=== PATIENT | female | born 1970 | race Hispanic/Latino ===

== ENCOUNTER 2018-01-21 09:17 | Outpatient (CLI) | payer BC ==
[2018-01-21 10:25] LABS: Estimated GFR-MDRD - POC Greater than 90
[2018-01-21] MEDS ORDERED: Gadobenate Dimeglumine 529 MG/1 ML (20ML VIAL) ONE (10:39)
--- NOTE | 2018-01-21 12:10 | MRI ---
MRI LUMBAR SPINE WITH AND WITHOUT GADOLINIUM CONTRAST: History: Low back pain. Left leg radiculopathy. FINDINGS: No comparison. Conus medullaris has a normal appearance. Vertebral body height and alignment are maintained. Desicca tion of lowest two intravertebral discs. T12-L1, L1-2, L2-3: Central canal and neural foramina are patent. L3-4: Small focal posterior central disc herniation slightly compresses the ventral aspect of the the charlie sac just to the right of midline. No significant nerve root compression. Neural foramina are herndon nt. L4-5: Left posterior paracentral disc herniation compresses the left ventral aspect of the thecal sac and slightly displaces the cauda equina roots. Slight inferior extension compresses the left L5 nerv e root origin just above the level of the lateral recess. Neural foramina remain patent. L5-S1: Mild osteophytosis and disc bulge. Thecal sac remains patent. Degenerative changes result in m oderate right and moderate to severe left foraminal stenoses. IMPRESSION: 1. Left posterior paracentral disc herniation at the L4-5 level, effacing the thecal sac and compress ing the left L5 nerve root origin. Left L5 nerve root also affected by stenosis at the left neurofora men at the lumbosacral junction. 2. Small right posterior paracentral disc herniation at the L3-4 level. 3. Other relatively mild degenerative change of the lower lumbar spine as detailed above. POS: JERRICA
== END 2018-01-21 09:18 | disposition home or self-care (01) ==
LOC: BICMRI 09:17
PROVIDERS: ATTEND Nurse Practitioner Family
DX: M54.5 Low back pain (principal); G57.00 Lesion of sciatic nerve, unspecified lower limb; G62.9 Polyneuropathy, unspecified; M51.26 Other intervertebral disc displacement, lumbar region; M47.897 Other spondylosis, lumbosacral region
CPT/HCPCS: 36415; 72158; 80048; 82565; A9579

== ENCOUNTER 2018-03-12 09:59 | Outpatient (CLI) | payer BC ==
[2018-03-12 11:23] LABS: Hemoglobin 13.8 g/dL (12.0-16.0); Mean Corpuscular HGB CONC 33.6 g/dL (32.0-36.0); Mean Corpuscular Volume 92.3 fL (78.0-98.0); Mean Platelet Volume 8.8 fL (7.4-10.4); Platelet Count 307 thou/uL (130-400); RBC Distribution Width 11.6 % (11.5-14.5); Red Blood Cell (RBC) Count 4.44 mill/uL (4.20-5.40); White Blood Cell (WBC) Count 15.3 thou/uL (4.8-10.8)
[2018-03-12 11:37] LABS: Anion Gap 12 mmol/L (10-20); BUN (Urea Nitrogen) 11 mg/dL (7.0-18.7); Calc. Creatinine Clearance 0 mL/min (70-130); Carbon Dioxide 24 mmol/L (22-29); Chloride 106 mmol/L (98-107); Estimated GFR-MDRD 88; Glucose 196 mg/dL (70-105); Potassium 3.7 mmol/L (3.5-5.1); Sodium 138 mmol/L (136-145)
--- NOTE | 2018-03-12 18:00 | EKG ---
Test Reason : Blood Pressure : / mmHG Vent. Rate : 068 BPM Atrial Rate : 068 BPM P-R Int : 162 ms QRS Dur : 086 ms QT Int : 388 ms P-R-T Axes : 085 080 078 degrees QTc Int : 412 ms Normal sinus rhythm ST elevation consider inferior injury or acute infarct vs. J point elevation and early repolarizatio n. Abnormal ECG No previous ECGs available Confirmed by NADIA LANGFORD ([id number]) on 03/12/2018 5:59:50 PM Referred By: SHENG Confirmed By:NADIA LANGFORD
--- NOTE | 2018-03-12 18:03 | EKG ---
Test Reason : REPEAT Blood Pressure : / mmHG Vent. Rate : 065 BPM Atrial Rate : 065 BPM P-R Int : 164 ms QRS Dur : 086 ms QT Int : 388 ms P-R-T Axes : 059 074 071 degrees QTc Int : 403 ms Normal sinus rhythm ST elevation consider inferior injury or acute infarct or early repolarization with J point elevation. Abnormal ECG When compared with ECG of 12-MAR-2018 10:53, (Unconfirmed) No significant change was found Confirmed by NADIA LANGFORD ([id number]) on 03/12/2018 6:03:11 PM Referred By: BENI Confirmed By:NADIA LANGFORD
== END 2018-03-12 10:00 | disposition home or self-care (01) ==
LOC: LABBT 09:59
PROVIDERS: ATTEND Neurological Surgery
DX: Z01.818 Encounter for other preprocedural examination (principal)
CPT/HCPCS: 80048; 85027; 93005; 93010

== ENCOUNTER 2018-03-21 07:00 | Day surgery (SDC) | payer BC ==
[2018-03-12 10:23] VITALS: BMI 31.2
[2018-03-21] MEDS ORDERED: CEFAZOLIN 2 GM/50 ML BAG ONE (08:08)
[2018-03-21] MEDS ORDERED: HYDROmorphone 2 MG/ML VIAL ONE (09:16)
[2018-03-21] MEDS ORDERED: Fentanyl 100 MCG/2 ML VIAL ONE ×3 (09:16→11:28)
--- NOTE | 2018-03-21 10:57 | OP ---
DATE OF PROCEDURE: 03/21/2018 INVESTMENT ACCOUNTING CLERK: Thomas. PROCEDURE PERFORMED: Left L4-L5 microdiskectomy. DESCRIPTION OF PROCEDURE: The patient was brought to the operating room and intubated. She was rolled in the prone position on gel-filled chest rolls. An incision was made exposing L4-L5 on the left, and the level was confirmed by x-ray. We performed a left L4-L5 hemilaminectomy ligament and beneath the left L5 nerve root, identified a large central disk herniation, it was removed in multiple fragments. A complete decompression of left L5 was achieved. The wound was then extensively irrigated and maximum hemostasis was secured. Vancomycin powder was applied and the wound was closed in anatomic layers. Job ID: [id number]
[2018-03-21] MEDS ORDERED: Ondansetron ODT 4 MG TAB ONE (14:58)
[2018-03-21] MEDS ORDERED: Ketorolac Tromethamine 30 MG/ML VIAL ONE (20:34)
[2018-03-21] MEDS ORDERED: Glycopyrrolate 0.2 MG/ML 5 ML SYRINGE ONE (20:34)
[2018-03-21] MEDS ORDERED: Dexamethasone 20 MG/5 ML VIAL ONE (20:34)
[2018-03-21] MEDS ORDERED: Lidocaine 1% PF 5 ML VIAL ONE (20:34)
[2018-03-21] MEDS ORDERED: PROPOFOL 200 MG/20 ML VIAL ONE (20:34)
[2018-03-21] MEDS ORDERED: Ondansetron PF 4 MG/2 ML Vial ONE (20:34)
[2018-03-21] MEDS ORDERED: PROVENTIL INHALER 6.7 G (200 INHALATIONS) ONE (20:34)
== END 2018-03-21 15:30 | disposition home or self-care (01) ==
LOC: SDC 07:00
PROVIDERS: ATTEND Neurological Surgery
PROC: 0SB20ZZ Excision of Lumbar Vertebral Disc, Open Approach (ICD-10-PCS; principal; 2018-03-21)
DX: M51.16 Intervertebral disc disorders with radiculopathy, lumbar region (principal); E11.9 Type 2 diabetes mellitus without complications; E78.00 Pure hypercholesterolemia, unspecified; Z79.899 Other long term (current) drug therapy; Z88.5 Allergy status to narcotic agent
CPT/HCPCS: 76001; 96374; J1100; J1170; J1885; J2001; J2405; J2704; J3010; J3370; Q0162

== ENCOUNTER 2020-02-29 14:58 | Outpatient (CLI) | payer BC ==
--- NOTE | 2020-02-29 16:12 | MRI ---
MR OF THE RIGHT KNEE WITHOUT CONTRAST INDICATION: Right knee osteoarthrosis and right knee pain TECHNIQUE: Axial and coronal PD fat sat, sagittal T2 fat sat, sagittal PD turbo spin echo and T1 anup nal images were obtained of the right knee. COMPARISON: None. FINDINGS: Joint effusion: There is very small joint effusion. Semimembranosus-medial gastrocnemius popliteal cyst: None. Ligaments: The ACL, PCL, MCL and LCLC are intact. Extensor mechanism: Intact. Menisci: There is a discoid lateral meniscus with multidirectional maceration seen involving the ante rior and central aspect of the discoid meniscus. There is prominent intrasubstance degenerative signal involving the posterior aspect of the lateral meniscus. There is a horizontally oriented tear involving the body of the medial meniscus. Articular cartilage: There is diffuse thinning involving the femoral tibial and patellofemoral compar tments. There are small marginal osteophytes affecting all major compartments. Osseous structures: No acute fracture is evident. Popliteus and IT band: The IT band and popliteus appear within normal limits. There is susceptibility artifact within the lateral patellar retinaculum which may reflect sequela of prior lateral release. IMPRESSION: 1. Postoperative right knee. 2. 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 3. Medial meniscal tear. 4. Mild osteoarthrosis of the right knee.
== END 2020-02-29 14:59 | disposition home or self-care (01) ==
LOC: BICMRI 14:58
PROVIDERS: ATTEND Orthopaedic Surgery
DX: S83.281A Other tear of lateral meniscus, current injury, right knee, initial encounter (principal); M17.0 Bilateral primary osteoarthritis of knee; S83.241A Other tear of medial meniscus, current injury, right knee, initial encounter; Z98.890 Other specified postprocedural states

== ENCOUNTER 2020-03-04 07:06 | Outpatient (CLI) | payer BC ==
[2020-03-04 19:31] LABS: #Basophils 0.1 10x3/uL (0.0-0.2); #Eosinphils 0.2 10x3/uL (0.0-0.5); #Monocytes 0.6 10x3/uL (0.0-1.1); #Neutrophils 5.6 10x3/uL (1.5-8.4); %Basophils 0.8 % (0.0-2.0); %Eosinophils 1.5 % (0.0-6.0); %Lymphocytes 38.2 % (18.0-47.0); %Monocytes 5.6 % (0.0-10.0); %Neutrophils 53.6 % (40.0-75.0); Hemoglobin 13.7 g/dL (12.0-16.0); Mean Corpuscular HGB CONC 32.6 G/DL (32.0-36.0); Mean Corpuscular Hemoglobin 30.4 PG (27.0-33.0); Mean Corpuscular Volume 93.3 fl (80.0-100.0); Mean Platelet Volume 12.2 fl (7.4-10.4); Platelet Count 261 10x3/uL (130-400); RBC Distribution Width 13.1 % (11.5-14.5); White Blood Cell (WBC) Count 10.4 10x3/uL (4.5-11.0)
[2020-03-04 19:42] LABS: Anion Gap 16 mmol/L (10-20); BUN (Urea Nitrogen) 10 mg/dL (7.0-18.7); Calc. Creatinine Clearance 0 mL/min (70-130); Calcium 10.1 mg/dL (7.8-10.44); Carbon Dioxide 24 mmol/L (22-29); Chloride 103 mmol/L (98-107); Glucose 104 mg/dL (70-105); Sodium 139 mmol/L (136-145)
[2020-03-05 03:33] LABS: SARS-CoV-2 MS2 Positive; SARS-CoV-2 N Gene Negative; SARS-CoV-2 S Gene Negative; SARS-CoV-2 by NAA Not Detected (NotDetected); SARS-CoV-2 orf1ab Negative
== END 2020-03-04 07:07 | disposition home or self-care (01) ==
LOC: LABBT 07:06
PROVIDERS: ATTEND Orthopaedic Surgery
DX: Z01.818 Encounter for other preprocedural examination (principal); S83.206A Unspecified tear of unspecified meniscus, current injury, right knee, initial encounter; Z20.828 Contact with and (suspected) exposure to other viral communicable diseases
CPT/HCPCS: 80048; 85025; 87635; 93005; 93010; U0003

== ENCOUNTER 2020-03-09 07:55 | Day surgery (SDC) | payer BC ==
[2020-03-08 11:42] VITALS: BMI 33.2
[2020-03-09] MEDS ORDERED: PROPOFOL 20 ML ONE (08:34)
[2020-03-09] MEDS ORDERED: Lidocaine 1% (PF) 30 ML VIAL ONE (09:05)
[2020-03-09] MEDS ORDERED: Lidocaine 1% PF 5 ML VIAL ONE (10:52)
[2020-03-09] MEDS ORDERED: PROPOFOL 200 MG/20 ML VIAL ONE (10:52)
[2020-03-09] MEDS ORDERED: Ketorolac Tromethamine 30 MG/ML VIAL ONE (10:52)
[2020-03-09] MEDS ORDERED: ePHEDrine 50 MG/ML VIAL ONE (10:52)
[2020-03-09] MEDS ORDERED: Dexamethasone 20 MG/5 ML VIAL ONE (10:52)
[2020-03-09] MEDS ORDERED: Bupivacaine HCl 0.5%/Epinephrine 1:200,000/PF 30 ml Vial ONE (10:52)
[2020-03-09] MEDS ORDERED: Lidocaine 2% w/Epinephrine 1:200K 20 ML VIAL ONE (10:52)
[2020-03-09] MEDS ORDERED: Ondansetron PF 4 MG/2 ML Vial ONE (10:52)
[2020-03-09] MEDS ORDERED: Bupivacaine 0.25% HCL 30 ML VIAL ONE (11:22)
[2020-03-09] MEDS ORDERED: Bupivacaine PF 0.5% 30 ML VIAL ONE (11:22)
[2020-03-09] MEDS ORDERED: Lidocaine 1% w/Epinephrine 1:100K 20 ML VIAL ONE (11:22)
[2020-03-09] MEDS ORDERED: Meperidine HCl/PF 25 MG/ML VIAL ONE (12:51)
--- NOTE | 2020-03-09 14:19 | OP ---
DATE OF PROCEDURE: 03/09/2020 PREOPERATIVE DIAGNOSIS: Right knee torn medial and lateral meniscus tears with the lateral meniscus being a torn discoid meniscus. POSTOPERATIVE DIAGNOSES: 1. Right knee torn medial and lateral meniscus tears with the lateral meniscus being a torn discoid meniscus. 2. 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 3. Failed repair of anterior horn, lateral meniscus. 4. Multiple areas of calcification noted to include medial femoral condyle, medial tibial plateau, lateral tibial plateau. PROCEDURE PERFORMED: Right knee arthroscopy with partial medial and lateral meniscectomies. TURBINE ENGINE ASSEMBLER: None. ESTIMATED BLOOD LOSS: Minimal. COMPLICATIONS: None. DISPOSITION: She did go to recovery room in stable condition. ANESTHESIA: She did have a general anesthetic as well as a local knee block. INDICATIONS: This is a 49-year-old female, who presents with painful catching noted in the right knee and an MRI scan showed her to have tears of both medial and lateral menisci. DESCRIPTION OF PROCEDURE: After all appropriate consent forms were explained and signed, Annia was taken to the operating room and at this time was given general anesthetic. Once the level of anesthesia was appropriate, a tourniquet was placed on the right thigh. Leg was placed in arthroscopic leg snyder. The limb was then prepped and draped in surgical fashion. Limb was exsanguinated. The tourniquet was taken up to 300 mmHg. Inferolateral portal was established and scope was placed into the knee joint. A needle localization technique was then used to make a medial working portal. Diagnostic arthroscopy commenced in the notch. The ACL and PCL were probed, found to be intact. The medial compartment did show some unstable chondral flaps, which were gently debrided with a shaver back to a stable base. Underlying changes were graded as grade 2 and 3. There also was a peripheral flap of tissue along the medial femoral condyle. This was taken down in its entirety to try and prevent catching from this. The medial compartment itself was evaluated. There were some calcifications noted in the femoral condyle as well as the tibial plateau as well as the medial meniscus. There was degenerative tearing noted in the posterior horn and the body of the medial meniscus and a partial medial meniscectomy was performed using meniscal biter and shaver. Overall, however, the tibial plateau was in good condition and the majority of the meniscus was salvaged. We entered the lateral compartment and there was a discoid meniscus. There was multiple areas of calcification noted in the meniscus. There was a tear in the central portion of the discoid meniscus and upon evaluation, there was an area in the anterior horn, where there was some previously placed Ethibond sutures where either a re-tear of the repair had occurred or perhaps it had never healed to begin with. There was no way that this tissue could undergo a repeat repair as the meniscal tissue itself was calcified and hard and at this time. I felt it was best to just remove the torn portion of the meniscus so it would quit popping and catching in the patient's knee. Therefore, meniscal biter and shaver were used to remove the meniscus that was torn, leaving a good amount of posterior horn tissue and some body tissue. The anterior horn was basically removed. Underlying tibial plateau had a large area of calcified changes noted towards the lateral most portion, which was underlying the meniscus itself. The lateral femoral condyle overall was in pretty good shape. The gutters were swept through and there were no loose bodies noted. However, there was fair amount of osteophytes noted on the lateral femoral condyle. Again medially, the soft tissue was removed, which was perhaps beginning of osteophyte formation. The trochlea overall was in good condition. The patella and central area of unstable cartilage, which was taken down gently with a shaver. The remaining patellar cartilage was overall in good condition. At this time, the scope was removed. Knee was drained and each portal was closed with simple nylon stitch. Bulky sterile dressing was applied and the tourniquet was let down. Toes pinked up nicely. The patient was awakened. She was taken to recovery room in stable condition. All counts were correct at the end of the case. She did receive preoperative IV antibiotics. Job ID: [id number] [facility]
[2020-03-09] MEDS ORDERED: HYDROcodone/Acetaminophen 5/325 mg Tablet ONE (14:28)
== END 2020-03-09 15:40 | disposition home or self-care (01) ==
LOC: SDC 07:55
PROVIDERS: ATTEND Orthopaedic Surgery
PROC: 0SBC4ZZ Excision of Right Knee Joint, Percutaneous Endoscopic Approach (ICD-10-PCS; principal; 2020-03-09)
DX: S83.241A Other tear of medial meniscus, current injury, right knee, initial encounter (principal); M23.241 Derangement of anterior horn of lateral meniscus due to old tear or injury, right knee; E11.9 Type 2 diabetes mellitus without complications; E78.5 Hyperlipidemia, unspecified; Z79.899 Other long term (current) drug therapy; Z79.84 Long term (current) use of oral hypoglycemic drugs; Z87.891 Personal history of nicotine dependence; Z88.5 Allergy status to narcotic agent
CPT/HCPCS: J0690; J1100; J1885; J2001; J2175; J2405; J2704; J3490; S0020

== ENCOUNTER 2020-07-29 09:09 | Outpatient (CLI) | payer BC | END 2020-07-29 09:10 | disposition home or self-care (01) | LOC: TBSIIMAG 09:09 | PROVIDERS: ATTEND Orthopaedic Surgery | DX: M54.5 Low back pain (principal); M47.816 Spondylosis without myelopathy or radiculopathy, lumbar region | CPT/HCPCS: 72148 ==

== ENCOUNTER 2020-11-15 13:30 | Outpatient (CLI) | payer BC | END 2020-11-15 13:31 | disposition home or self-care (01) | LOC: BICMRI 13:30 | PROVIDERS: ATTEND Nurse Practitioner Family | DX: M47.812 Spondylosis without myelopathy or radiculopathy, cervical region (principal); M47.814 Spondylosis without myelopathy or radiculopathy, thoracic region; M48.02 Spinal stenosis, cervical region | CPT/HCPCS: 72141; 72146 ==

== ENCOUNTER 2021-09-09 13:40 | Emergency (ER) | payer OTHER, BC ==
[~2021-09-09 13:40] MED LIST: ISOVUE-370 76%-LOCM 1 ML ONE
[2021-09-09 14:25] LABS: #Basophils 0.1 thou/uL (0.0-0.2); #Eosinphils 0.2 thou/uL (0.0-0.7); #Lymphocytes 3.6 thou/uL (1.20-3.40); #Monocytes 0.6 thou/uL (0.11-0.59); #Neutrophils 5.3 thou/uL (1.40-6.50); %Basophils 0.9 % (0.0-1.0); %Eosinophils 1.6 % (0.0-10.0); %Lymphocytes 37.2 % (21.0-51.0); %Monocytes 5.8 % (0.0-10.0); %Neutrophils 54.6 % (42.0-75.0); Mean Corpuscular Hemoglobin 32.1 pg (27.0-31.0); Mean Corpuscular Volume 94.6 fL (78.0-98.0); Mean Platelet Volume 8.8 fL (7.4-10.4); Platelet Count 233 thou/uL (130-400); RBC Distribution Width 11.2 % (11.5-14.5); Red Blood Cell (RBC) Count 4.37 mill/uL (4.20-5.40); White Blood Cell (WBC) Count 9.8 thou/uL (4.8-10.8)
[2021-09-09 14:40] LABS: ALT (SGPT) 14 U/L (8-55); AST (SGOT) 15 U/L (5-34); Albumin 4.3 g/dL (3.5-5.0); Alkaline Phosphatase 74 U/L (40-110); Anion Gap 14 mmol/L (10-20); BUN (Urea Nitrogen) 10 mg/dL (9.8-20.1); Bilirubin, Total 0.8 mg/dL (0.2-1.2); Calc. Creatinine Clearance 0 mL/min (70-130); Calcium 10.2 mg/dL (7.8-10.44); Carbon Dioxide 22 mmol/L (22-29); Chloride 106 mmol/L (98-107); Glucose 214 mg/dL (70-105); Potassium 3.7 mmol/L (3.5-5.1); Protein, Total 7.3 g/dL (6.0-8.3); Sodium 138 mmol/L (136-145)
[2021-09-09] MEDS ORDERED: Morphine 4 MG/ML VIAL ONE (14:46)
== END 2021-09-09 17:14 | disposition home or self-care (01) ==
LOC: ERS 13:40
DX: S16.1XXA Strain of muscle, fascia and tendon at neck level, initial encounter (principal); S20.212A Contusion of left front wall of thorax, initial encounter; E11.9 Type 2 diabetes mellitus without complications; F17.210 Nicotine dependence, cigarettes, uncomplicated; V43.62XA Car passenger injured in collision with other type car in traffic accident, initial encounter; W22.12XA Striking against or struck by front passenger side automobile airbag, initial encounter; Z79.84 Long term (current) use of oral hypoglycemic drugs; Z79.899 Other long term (current) drug therapy
CPT/HCPCS: 36415; 71045; 71260; 72125; 74177; 80053; 85025; 93005; 96374; J2270; Q9966